=== PATIENT | male | born 1965 | race Two or more races ===

== ENCOUNTER 2018-03-07 13:54 | Emergency (ER) | payer MEDICARE, OTHER ==
[~2018-03-07] VITALS: Ht 172.7 cm; Wt 81.6 kg
[~2018-03-07 13:54] MED LIST: ACETAMINOPHEN-1 EAC1 ORAL; ALBUTEROL SULF8.5 GM INH; ANTIVERT25 MG ORAL; ATIVAN2 MG ORAL; AZITHROMYCIN250 MG ORAL; BACTRIM DS TAB1 EAC1 ORAL; BENADRYL25 MG ORAL; BENADRYL50 MG ORAL; DIFLUCAN150 MG PO; DOXYCYCLINE MO100 MG ORAL; ISENTRESS400 MG ORAL; KEFLEX500 MG ORAL; LORAZEPAM2 MG ORAL; MEDROL DOSEPAK4 MG ORAL; METRONIDAZOLE500 MG ORAL; NORCO 5-325 TA1 EACH ORAL; NORVIR100 MG ORAL; NYSTATIN100000 UN1 ORAL; PEPCID20 MG ORAL; PREDNISONE20 MG ORAL; PREDNISONE50 MG PO; PROMETHAZINE-C118 M1 ORAL; RANITIDINE HCL150 MG ORAL; ROBITUSSIN DM5 ML ORAL; SOMA350 MG PO; THORAZINE10 MG PO; TRUVADA1 TAB ORAL; ZYRTEC10 MG ORAL; [UNRECOGNIZED DRUG - OTHER] PO
[2018-03-07 14:20] VITALS: BP 127/83
--- NOTE | 2018-03-07 14:28 | Emergency Room Report ---
History of Present Illness General Chief Complaint: Multiple Trauma/Fall Source: Patient, Medical Record (Adolph Valdez) Present Illness HPI 52-year-old male patient presents ER complaining of multiple areas of pain status post fall yesterday. Patient reports that he was walking with heavy bottles in both hand when he slipped on some water and fell. Patient reports that he fell onto his left shoulder against the wall and dropped the bottles on his left foot. Patient denies hitting his head or loss of consciousness. Patient denies difficulty with ambulation. patient denies hitting neck or back pain, neck or back yesterday following injury. Patient complains of pain in neck and back today, requesting x-rays of those areas, states he was sent here by his PCP for imaging. Patient reports decreased range of motion of his left shoulder and increased pain since yesterday. reports feeling "a knot" in his posterior left shoulder. Denies taking any medication since that time. denies vomiting, lacerations, leading. Reports history of HIV, states WBC count good and viral load undetectable. Denies other acute symptoms. (Adolph Valdez) Allergies: Coded Allergies: EFAVIRENZ (Verified Allergy, Unknown, 03/11/14) HYDROCODONE (Verified Allergy, Unknown, 03/11/14) Patient History Past Medical History: see triage record Reviewed Nursing Documentation: PMH: Agreed; PSxH: Agreed (Adolph Valdez) Nursing Documentation-PMH Past Medical History: No History, Except For Hx Hypertension: No Hx Pacemaker: No Hx Asthma: No Hx COPD: No Hx Gastrointestinal Problems: Yes - RECTAL POLPYS (Adolph Valdez) Review of Systems All Other Systems: negative except mentioned in HPI (Adolph Valdez P.Veena) Physical Exam Vital Signs Date Time Temp Pulse Resp B/P (MAP) Pulse Ox O2 Delivery O2 Flow Rate FiO2 03/07/18 13:55 97.8 80 18 127/83 97 Room Air 97.9 Sp02 EP Interpretation: reviewed, normal General Appearance: well appearing, no apparent distress, alert, GCS 15, non- toxic Head: normocephalic, atraumatic Eyes: bilateral eye normal inspection, bilateral eye PERRL ENT: hearing grossly normal, normal pharynx, no angioedema, normal voice, uvula midline, moist mucus membranes Neck: full range of motion, no bony tend Respiratory: lungs clear, normal breath sounds, no rhonchi, no respiratory distress, no accessory muscle use, no wheezing, speaking full sentences Cardiovascular #1: regular rate, rhythm, no edema Cardiovascular #2: 2+ radial (R), 2+ radial (L), 2+ dorsalis pedis (R), 2+ dorsalis pedis (L) Musculoskeletal: back normal, digits/nails normal, gait/station normal, normal range of motion - left foot, back, neck, non-tender, decreased range of motion - left shoulder secondary to pain, swelling - posterior left shoulder: 2 cm palpable lump, no bruising, no ecchymosis, other - no bony step-off, no tenderness to palpation of spine, no bruising, no ecchymosis, no erythema; Refill less than 2 seconds, no deformity, able to wiggle toes, no ecchymosis; negative sulcus sign, tender - cereal or shoulder Neurologic: alert, oriented x3, responsive, motor strength/tone normal, sensory intact Psychiatric: mood/affect normal (Adolph Valdez P.AAngela) Medical Decision Making PA Attestation Dr. Haskins is my supervising Physician whom patient management has been discussed with. (Adolph Valdez P.AAngela) Diagnostic Impression: Primary Impression: Neck pain Additional Impressions: Back pain Foot pain Traumatic hematoma of left shoulder ER Course Pt. presents to the ED c/o multiple complaints. Ddx considered but are not limited to fracture, sprain, strain, contusion, dislocation. denies hitting head or loss consciousness, does not require imaging Vital signs: are WNL, pt. is afebrile Ordered X-ray and pain medication. ER COURSE Provided with pain medication. On physical exam, patient reports increased pain with abduction above 90 and internal rotation, decreased range of motion secondary to pain. Bump on posterior shoulder, likely hematoma secondary from fall, advised patient on heating pad and massage.. Take pain medication for pain. An X-ray of the left shoulder was ordered, results show no acute fracture or dislocation, per the preliminary reading. An X-ray of the left foot was ordered, results show no acute fracture, per the preliminary reading. An X-ray of the cervical spine was ordered, results show no acute fracture, per the preliminary reading. An X-ray of the and lumbar spine was ordered, results show no acute fracture, per the preliminary reading. No swelling or deformity of left foot, no subungual hematoma or laceration, throat wiggle toes, likely contusion. Will wrap foot due to pain symptoms. No bony deformity or tenderness to palpation on spine, full range of motion of back and neck, no tenderness to palpation. Likely muscular pain in nature. Informed patient symptoms may worsen in coming days, will provide medication for discharge to home. Karl wrap and postop shoe was applied to the left foot and was checked afterwards by me showing good alignment and support with distal neurovascular functioning intact. Patient reports pain symptoms improved. Patient able ambulate independently, does not require crutches at this time. Patient instructed on RICE method: rest, ice, compression, elevation. Patient instructed to WBAT. CD of images provided to patient. Followup with primary care provider for management and treatment as needed. Discuss referral to ortho/pain management/PT as needed. Discuss further imaging with MRI/CT as needed. DISCHARGE: -Rx provided for Ibuprofen for pain symptoms. -Rx provided for Methocarbamol. SE drowsiness, do not drink, drive, or operate heavy machinery while using. -Rx provided for Lidocaine patch At this time pt. is stable for d/c to home. Patient is resting comfortably, in no acute distress, nontoxic appearing, talking without difficulty. Will provide printed patient care instructions, and any necessary prescriptions. Patient instructed to follow with primary care provider in 3 - 5 days and to request further orthopedic follow-up. Care plan and follow up instructions have been discussed with the patient prior to discharge. Take medications as directed. Patient questions asked and answered. Patient reports understanding and agreement to treatment plan. ER precautions given, patient instructed to return to ER immediately for any new or worsening of symptoms. - Please note that this Emergency Department Report was dictated using JobSyncrefuse driver technology software, occasionally this can lead to erroneous entry secondary to interpretation by the dictation equipment. (Adolph Valdez) Other X-Ray Diagnostic Results Other X-Ray Diagnostic Results #1: X-Ray ordered: left shoulder # of Views/Limited Vs Complete: 3 View Indication: Pain EP Interpretation: Yes PA Xray: Interpretation reviewed, by supervising MD, and agrees with findings. Interpretation: no dislocation, no soft tissue swelling, no fractures Impression: No acute disease PA Scribe Text Ritesh Valdez PA-C Other X-Ray Diagnostic Results #2: X-Ray ordered: left foot # of Views/Limited Vs Complete: 3 View Indication: Pain EP Interpretation: Yes PA Xray: Interpretation reviewed, by supervising MD, and agrees with findings. Interpretation: no dislocation, no soft tissue swelling, no fractures Impression: No acute disease PA Scribe Text Ritesh Valdez PA-C Other X-Ray Diagnostic Results #3: X-Ray ordered: cervical neck # of Views/Limited Vs Complete: Complete Indication: Pain EP Interpretation: Yes PA Xray: Interpretation reviewed, by supervising MD, and agrees with findings. Interpretation: no dislocation, no soft tissue swelling, no fractures Impression: No acute disease PA Scribe Text Ritesh Valdez PA-C Other X-Ray Diagnostic Results #4: X-Ray ordered: lumbar spine # of Views/Limited Vs Complete: 3 View Indication: Pain EP Interpretation: Yes PA Xray: Interpretation reviewed, by supervising MD, and agrees with findings. Interpretation: no dislocation, no soft tissue swelling, no fractures Impression: No acute disease PA Scribe Text Ritesh Valdez MELINDA-Vannesa (Adolph Valdez P.A.) Other X-Ray Diagnostic Results #1: Electronically Signed by: Scribe documentation reviewed by me and is accurate, Nash Haskins MD. Other X-Ray Diagnostic Results #2: Electronically Signed by: Scribe documentation reviewed by me and is accurate, Nash Haskins MD. Other X-Ray Diagnostic Results #3: Electronically Signed by: Scribe documentation reviewed by me and is accurate, Nash Haskins MD. Other X-Ray Diagnostic Results #4: Electronically Signed by: Scribe documentation reviewed by me and is accurate, Nash Haskins MD. (Nash Haskins M.D.) Last Vital Signs Date Time Temp Pulse Resp B/P (MAP) Pulse Ox O2 Delivery O2 Flow Rate FiO2 03/07/18 14:20 97.9 87 18 127/83 97 Room Air 97.9 (Adolph Valdez P.A.) Disposition: HOME, SELF-CARE Condition: Stable Scripts Methocarbamol* (ROBAXIN*) 500 Mg Tablet 500 MG PO TID, #21 TAB 0 Refills Prov: Adolph Valdez P.A. 03/07/18 Lidocaine (Lidocaine) 1 Each Adh..patch 700 MG TP DAILY for 7 Days, #7 PATCH Prov: Adolph Valdez 03/07/18 Ibuprofen* (MOTRIN*) 600 Mg Tablet 600 MG ORAL Q8H PRN for For Pain, #30 TAB 0 Refills Prov: Adolph Valdez 03/07/18 Patient Instructions: Back Pain, Adult, [id number], Cervical Sprain, Easy-to- Read, Foot Contusion, [id number], Shoulder Pain, [id number], Shoulder Range of Motion Exercises Additional Instructions: Patient instructed to follow up with primary care provider and discuss further referral in imaging at that time. Patient instructed on RICE method: rest, ice, compression, elevation. patient instructed on heating pad and massage for hematoma. Patient instructed to WBAT. Take medications as directed. Muscle relaxant may cause drowsiness, do not take prior to drinking, driving, or operating heavy machinery. Patient questions asked and answered. ER precautions given, patient instructed to return to ER immediately for any new or worsening of symptoms. Adolph Valdez March 07, 2018 14:28 Nash Haskins M.D. March 08, 2018 02:38
[2018-03-07] MEDS ORDERED: Acetaminophen 500mg (ES) tab ORAL ONE (14:30)
[2018-03-07] MEDS ORDERED: Methocarbamol 500mg tab ORAL ONE (14:30)
[2018-03-07] MEDS ORDERED: LIDOCAINE700 M1 TP (15:56)
[2018-03-07] MEDS ORDERED: ROBAXIN500 MG PO (15:56)
[2018-03-07] MEDS ORDERED: IBUPROFEN600 MG ORAL (15:56)
[2018-03-07 16:28] VITALS: BP 127/83
--- NOTE | 2018-03-08 09:36 | Diagnostic Imaging Report ---
Indication: Reason For Exam: PAIN Technique: Left foot, 3 views Comparison: None. Findings: The bones are intact. There is deformity of the fifth metatarsal consistent with old fracture. No acute fracture. No bone destruction. Impression: Deformity of the fifth metatarsal, likely related to old fracture. No acute abnormality.
--- NOTE | 2018-03-08 09:38 | Diagnostic Imaging Report ---
Indication: Reason For Exam: PAIN Technique: Left shoulder, 3 views Comparison: None. Findings: The osseous structures are intact. There is no fracture or destruction. The visualized joints are normal. The soft tissues are unremarkable. Impression: Negative study.
--- NOTE | 2018-03-08 09:40 | Diagnostic Imaging Report ---
Indication: Low back pain Technique: 3 views of the lumbosacral spine. Comparison: None Findings: There is spondylolysis of the pars interarticularis of L5. Grade 1 spondylolisthesis of L5 on S1 is noted. The coccyx is slightly posteriorly displaced. Alignment is otherwise intact. No fracture. No bone destruction. Impression: Spondylolysis of L5 with grade 1 listhesis of L5 on S1. Slight posterior displacement of the coccyx, likely related to old trauma. No acute abnormality.
--- NOTE | 2018-03-08 09:42 | Diagnostic Imaging Report ---
Indication: Reason For Exam: PAIN Technique: XRAY C Spine 2-3v Comparison: 04/27/2014. Findings: Alignment is intact. There is no fracture. There is no evidence of bone destruction. There is slight narrowing of the C4-5 and C5-6 discs.. Impression: Minimal degenerative change. Otherwise negative.
== END 2018-03-07 16:40 | disposition home or self-care (01) ==
LOC: EMR 14:30
DX: M54.2 Cervicalgia (principal); M79.672 Pain in left foot; M54.9 Dorsalgia, unspecified; S40.012A Contusion of left shoulder, initial encounter; W01.0XXA Fall on same level from slipping, tripping and stumbling without subsequent striking against object, initial encounter; Y92.9 Unspecified place or not applicable; M47.816 Spondylosis without myelopathy or radiculopathy, lumbar region; M43.16 Spondylolisthesis, lumbar region; M21.962 Unspecified acquired deformity of left lower leg
CPT/HCPCS: 72020; 72040; 99284

== ENCOUNTER → 2018-03-12 | Outpatient (CLI) | payer MEDICARE, OTHER ==
[~2018-03-12] MED LIST changes: +IBUPROFEN600 MG ORAL; +LIDOCAINE700 M1 TP; +ROBAXIN500 MG PO
--- NOTE | 2018-03-12 11:35 | Diagnostic Imaging Report ---
Indication:Elevated Bun and Creatinine. Technique: Grayscale and duplex Doppler imaging of the kidneys performed. Comparison: None Findings: The size, contour, and echogenicity of both kidneys are within normal limits. There is a calcification in the left kidney which may be a nonobstructive stone. There is a cyst in the left kidney measuring 9 mm. Left kidney is 12.5 cm. Right kidney is 11 cm in length. There is no hydronephrosis. IVC is unremarkable. There is layering material which may be blood or debris in the urinary bladder. Impression: Possible nonobstructive stone in the left kidney. Noncontrast CT may confirm this. Left renal cyst. Small amount of debris or blood noted in the bladder. Negative exam otherwise
== END | disposition home or self-care (01) ==
LOC: ULS 10:55
DX: R31.9 Hematuria, unspecified (principal); N20.0 Calculus of kidney
CPT/HCPCS: 76770

== ENCOUNTER 2018-09-12 05:07 | Emergency (ER) | payer MEDICARE, OTHER ==
[~2018-09-12] VITALS: Ht 172.7 cm; Wt 84.8 kg
[2018-09-12 05:26] VITALS: BP 142/92
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
[2018-09-12 05:50] VITALS: BP 142/92
== END 2018-09-12 05:50 | disposition home or self-care (01) ==
LOC: EMR 05:43
DX: M54.2 Cervicalgia (principal); M54.9 Dorsalgia, unspecified; Z88.6 Allergy status to analgesic agent; Z88.8 Allergy status to other drugs, medicaments and biological substances; V49.9XXA Car occupant (driver) (passenger) injured in unspecified traffic accident, initial encounter; Y92.410 Unspecified street and highway as the place of occurrence of the external cause
CPT/HCPCS: 99282

== ENCOUNTER 2019-05-01 11:46 | Emergency (ER) | payer MEDICARE, OTHER ==
[~2019-05-01] VITALS: Ht 172.7 cm; Wt 85.7 kg
[2019-05-01 11:49] VITALS: BP 119/74
--- NOTE | 2019-05-01 12:12 | Emergency Room Report ---
History of Present Illness General Chief Complaint: Chest Pain Source: Patient Present Illness HPI 53 year old male pmhx of HIV, CD4 count > 700, undetectable, presents with intermittent chest pressure that comes and go for mins, no aggravating or alleviating factors, patient has felt sob. Patient denies any f/c, cough congestion, no n/v, no abdominal pain. Patient presents for eval Allergies: Coded Allergies: EFAVIRENZ (Verified Allergy, Unknown, 03/11/14) HYDROCODONE (Verified Allergy, Unknown, 03/11/14) Patient History Past Medical History: see triage record Reviewed Nursing Documentation: PMH: Agreed; PSxH: Agreed Nursing Documentation-PMH Past Medical History: No History, Except For Hx Hypertension: No Hx Pacemaker: No Hx Asthma: No Hx COPD: No Hx Gastrointestinal Problems: Yes - RECTAL POLPYS Review of Systems Constitutional: Denies: chills, fever Eye: Denies: blurred vision, double vision ENT: Denies: throat pain, nasal discharge Respiratory: Reports: shortness of breath; Denies: cough Cardiovascular: Reports: chest pain; Denies: palpitations Gastrointestinal: Denies: abdominal pain, diarrhea, nausea, vomiting Genitourinary: Denies: dysuria, pain Musculoskeletal: Denies: back pain, muscle pain Skin: Denies: rash, lesions Neurological: Denies: headache, focal weakness Hematologic/Lymphatic: Denies: easy bleeding, easy bruising All Other Systems: negative except mentioned in HPI Physical Exam Vital Signs Date Time Temp Pulse Resp B/P (MAP) Pulse Ox O2 Delivery O2 Flow Rate FiO2 05/01/19 11:49 98.2 85 21 119/74 (89) 95 Room Air Sp02 EP Interpretation: reviewed, normal General Appearance: well appearing, no apparent distress, alert Head: normocephalic, atraumatic Eyes: bilateral eye PERRL, bilateral eye EOMI ENT: uvula midline, moist mucus membranes Neck: supple, thyroid normal, supple/symm/no masses Respiratory: lungs clear, no respiratory distress, no retraction, no accessory muscle use Cardiovascular #1: normal peripheral pulses, regular rate, rhythm, no edema, no gallop, no murmur Gastrointestinal: non tender, soft, no guarding, no rebound Musculoskeletal: normal inspection Neurologic: alert, oriented x3 Psychiatric: mood/affect normal Skin: no rash, warm/dry Medical Decision Making Diagnostic Impression: Primary Impression: Chest pain ER Course 53-year-old male presents with chest pain concerning for possible ACS, patient with a history of HIV is at risk of accelerated atherosclerosis, patient at 1 PM decided that he does not want to be admitted to the hospital he states that he must move his cars, he is aware of the risk of disability and worsening of his medical condition he is of sound mind. The patient has requested to leave the ED against medical advice. The patient reason(s) for leaving include, but are not limited to, the following: "I need to move my cars, no and can move my cards for me, and I do not want to get a ticket, and my pain is all gone." I believe this patient is of sound mind and competent to refuse medical care. The patient is responding and asking questions appropriately. The patient is oriented to person, place and time. The patient is not psychotic, delusional, suicidal, homicidal or hallucinating. The patient demonstrates a normal mental capacity to make decisions regarding their healthcare. The patient is clinically sober and does not appear to be under the influence of any illicit drugs at this time. The patient has been advised of the risks, in layman terms, of leaving AMA which include, but are not limited to , coma, permanent disability, loss of current lifestyle, delay in diagnosis. Alternatives have been offered - the patient remains steadfast in their wish to leave. The patient has been advised that should they change their mind they are welcome to return to this hospital, or any other, at any time. The patient understands that in no way does an AMA discharge mean that I do not want them to have the best medical care available. To this end, I have provided appropriate prescriptions, referrals, and discharge instructions. The patient did sign AMA paperwork. The above discussion was witnessed by another member of staff. Laboratory Tests Test 05/01/19 12:02 White Blood Count 8.2 K/UL (4.8-10.8) Red Blood Count 4.42 M/UL (4.70-6.10) L Hemoglobin 14.3 G/DL (14.2-18.0) Hematocrit 43.0 % (42.0-52.0) Mean Corpuscular Volume 97 FL (80-99) Mean Corpuscular Hemoglobin 32.4 PG (27.0-31.0) H Mean Corpuscular Hemoglobin Concent 33.3 G/DL (32.0-36.0) Red Cell Distribution Width 11.1 % (11.6-14.8) L Platelet Count 307 K/UL (150-450) Mean Platelet Volume 5.9 FL (6.5-10.1) L Neutrophils (%) (Auto) 55.5 % (45.0-75.0) Lymphocytes (%) (Auto) 34.6 % (20.0-45.0) Monocytes (%) (Auto) 8.0 % (1.0-10.0) Eosinophils (%) (Auto) 1.3 % (0.0-3.0) Basophils (%) (Auto) 0.7 % (0.0-2.0) Sodium Level 137 MMOL/L (136-145) Potassium Level 3.5 MMOL/L (3.5-5.1) Chloride Level 104 MMOL/L (98-107) Carbon Dioxide Level 27 MMOL/L (21-32) Anion Gap 6 mmol/L (5-15) Blood Urea Nitrogen 14 mg/dL (7-18) Creatinine 1.2 MG/DL (0.55-1.30) Estimate Glomerular Filtration Rate > 60 mL/min (>60) Glucose Level 110 MG/DL (74-106) H Calcium Level 9.5 MG/DL (8.5-10.1) Total Bilirubin 0.4 MG/DL (0.2-1.0) Aspartate Amino Transferase (AST) 19 U/L (15-37) Alanine Aminotransferase (ALT) 28 U/L (12-78) Alkaline Phosphatase 53 U/L (46-116) Total Creatine Kinase 123 U/L (26-308) Creatine Kinase MB 0.9 NG/ML (0.0-3.6) Creatine Kinase MB Relative Index 0.7 Troponin I 0.000 ng/mL (0.000-0.056) Pro-B-Type Natriuretic Peptide 12 pg/mL (0-125) Total Protein 7.7 G/DL (6.4-8.2) Albumin 4.2 G/DL (3.4-5.0) Globulin 3.5 g/dL Albumin/Globulin Ratio 1.2 (1.0-2.7) EKG Diagnostic Results EKG Time: 11:55 EP Interpretation: nsr, rate 77, qtc 418, no acute st elevations, normal axis Rate: normal Rhythm: NSR ST Segments: no acute changes ASA given to the pt in ED: Yes Rhythm Strip Diag. Results Rhythm Strip Time: 12:13 EP Interpretation: yes Rate: 82 Rhythm: NSR, no PVC's, no ectopy Chest X-Ray Diagnostic Results Chest X-Ray Diagnostic Results : Chest X-Ray Ordered: Yes # of Views/Limited/Complete: 1 View Indication: Chest Pain EP Interpretation: Yes Interpretation: no consolidation, no effusion, no pneumothorax, no acute cardiopulmonary disease Impression: No acute disease Electronically Signed by: Wilder Fox MD Last Vital Signs Date Time Temp Pulse Resp B/P (MAP) Pulse Ox O2 Delivery O2 Flow Rate FiO2 05/01/19 11:49 98.2 85 21 119/74 (89) 95 Room Air Disposition: AGAINST MEDICAL ADVICE Condition: Stable Scripts Aspirin* (ASPIR 81*) 81 Mg Tablet. 81 MG ORAL DAILY, #30 TAB Prov: Wilder Fox M.D. 05/01/19 Referrals: NON PHYSICIAN (PCP) [facility] Patient Instructions: Nonspecific Chest Pain Additional Instructions: The patient was provided with discharge instructions, notified to follow-up with a primary care doctor and or specialist in the next 24-48 hours, and to return to the ED if they have worsening of their symptoms. Please note that this report is being documented using DRAGON technology. This can lead to erroneous entry secondary to incorrect interpretation by the dictating instrument. Wilder Fox M.D. May 01, 2019 12:12
--- NOTE | 2019-05-01 12:13 | NUR ---
ED Nurse Note: Pt. AAOx4. ambulatory. Came in to ER due to CP since yesterday accompanied with sob and dizziness. Pt. stated the pain remains on the L subsaternal non-radiating. Lung sounds are clear auscultations. Bowels sounds are present to auscultation. No s/s of acute resp distress noted at this time.
--- NOTE | 2019-05-01 12:16 | NUR ---
ED Nurse Note: COMMUNICATIONS ENGINEERING TECHNICIAN AT THE BED SIDE FOR CXR.
[2019-05-01 12:18] LABS: BASOPHILS % (AUTO) 0.7 % (0.0-2.0); EOSINOPHILS % (AUTO) 1.3 % (0.0-3.0); HEMOGLOBIN 14.3 G/DL (14.2-18.0); LYMPHOCYTES % (AUTO) 34.6 % (20.0-45.0); MEAN CORPUSCULAR VOLUME 97 FL (80-99); NEUTROPHILS % (AUTO) 55.5 % (45.0-75.0); PLATELET COUNT 307 K/UL (150-450); RED BLOOD COUNT 4.42 M/UL (4.70-6.10); RED CELL DISTRIBUTION WIDTH 11.1 % (11.6-14.8); WHITE BLOOD COUNT 8.2 K/UL (4.8-10.8)
[2019-05-01 12:26] LABS: ANION GAP 6 mmol/L (5-15); BLOOD UREA NITROGEN 14 mg/dL (7-18); CALCIUM 9.5 MG/DL (8.5-10.1); CARBON DIOXIDE 27 MMOL/L (21-32); CHLORIDE 104 MMOL/L (98-107); CREATININE 1.2 MG/DL (0.55-1.30); POTASSIUM 3.5 MMOL/L (3.5-5.1); SODIUM 137 MMOL/L (136-145)
[2019-05-01 12:38] LABS: ALANINE AMINOTRANSFERASE 28 U/L (12-78); ALBUMIN 4.2 G/DL (3.4-5.0); ALBUMIN/GLOBULIN RATIO 1.2 (1.0-2.7); ALKALINE PHOSPHATASE 53 U/L (46-116); ASPARTATE AMINO TRANSFERASE 19 U/L (15-37); BILIRUBIN,TOTAL 0.4 MG/DL (0.2-1.0); CKMB 0.9 NG/ML (0.0-3.6); CREATINE KINASE 123 U/L (26-308)
[2019-05-01] MEDS ORDERED: ASPIR 8181 MG ORAL (12:59)
[2019-05-01 13:09] VITALS: BP 127/88
--- NOTE | 2019-05-01 13:09 | NUR ---
ER DISCHARGE NOTE: Dr Fox explained to pt benefits of hospitalization. Patient signed AMA and verbalized understanding of potential complications of being discharged and that he can come back anytime to ER. pt is aox4, on room air, with stable vital signs. pt was given dc and prescription instructions, pt was able to verbalize understanding, pt id band and iv site removed without complications. pt is able to ambulate with steady gait. pt took all belongings.
[2019-05-01] MEDS ORDERED: MECLIZINE HCL25 M1 ORAL (13:16)
--- NOTE | 2019-05-01 14:24 | Diagnostic Imaging Report ---
Indication: Chest pain Technique: One view of the chest Comparison: 12/03/2015 Findings: There is minimal atelectasis at the left lung base. No other significant interim change. Lungs and pleural spaces are otherwise clear. The heart size is normal. Impression: Minimal left basilar atelectasis. No acute process otherwise This agrees with the preliminary interpretation provided overnight by [facility]erad[facility] service.
--- NOTE | 2019-05-02 21:05 | Cardiology Report ---
APPROVED REPORT EKG Measurement Heart [id number] Normal sinus rhythm Normal ECG
== END 2019-05-01 13:09 | disposition left against medical advice (07) ==
LOC: EMR 11:56 → CANBEDREQ 13:09
DX: R07.9 Chest pain, unspecified (principal); B20 Human immunodeficiency virus [HIV] disease; Z88.6 Allergy status to analgesic agent
CPT/HCPCS: 36415; 71045; 80053; 82550; 82553; 83880; 84484; 85025; 93005; 99284

== ENCOUNTER 2019-05-14 05:55 | Emergency (ER) | payer MEDICARE, OTHER ==
[~2019-05-14] VITALS: Ht 172.7 cm; Wt 85.7 kg
[~2019-05-14 05:55] MED LIST changes: +ASPIR 8181 MG ORAL; +MECLIZINE HCL25 M1 ORAL
--- NOTE | 2019-05-14 06:08 | NUR ---
ED Nurse Note: Pt c/o 07/21 abdominal pain since 2am, pt reports pain started after taking daily medications without food. ao4. nad vss
--- NOTE | 2019-05-14 06:15 | NUR ---
ED Nurse Note: IV ACCESS ESTABLISHED. BLOOD AND URINE COLLECTED; SENT DOWN TO LAB.
[2019-05-14 06:26] VITALS: BP 120/90
--- NOTE | 2019-05-14 06:40 | Emergency Room Report ---
History of Present Illness General Chief Complaint: Abdominal Pain Source: Patient Present Illness HPI Patient is a 53-year-old male with prior history of HIV who presented after increased abdominal pain and distention. He reports of increased pain since yesterday. Patient reports having increased crampy abdominal pain. He denies any hematemesis or bloody stools. He had not been vomiting. He normally takes acid blockers. He is currently on HIV medications and states he has undetectable viral load as well as normal cell count. He denies any diarrhea. He denies any other locations of discomfort at this time.Patient reports having 3 prior hernia surgeries. He states that he did not return to a surgeon after 3 failures.Patient does not report any focal pain. He states that this is diffuse throughout his entire abdomen. Allergies: Coded Allergies: EFAVIRENZ (Verified Allergy, Unknown, 03/11/14) HYDROCODONE (Verified Allergy, Unknown, 03/11/14) Patient History Past Medical History: see triage record Reviewed Nursing Documentation: PMH: Agreed; PSxH: Agreed Nursing Documentation-PMH Past Medical History: No History, Except For Hx Hypertension: No Hx Pacemaker: No Hx Asthma: No Hx COPD: No Hx Gastrointestinal Problems: Yes - RECTAL POLPYS Review of Systems All Other Systems: negative except mentioned in HPI Physical Exam Vital Signs Date Time Temp Pulse Resp B/P (MAP) Pulse Ox O2 Delivery O2 Flow Rate FiO2 05/14/19 05:58 98.2 80 19 120/90 (100) 93 Room Air Sp02 EP Interpretation: reviewed, normal General Appearance: normal inspection, well appearing, no apparent distress, alert, GCS 15, non-toxic Head: atraumatic ENT: normal ENT inspection, hearing grossly normal, normal voice Neck: normal inspection, full range of motion, supple, no bony tend Respiratory: normal inspection, lungs clear, normal breath sounds, no respiratory distress, no retraction, no wheezing Cardiovascular #1: regular rate, rhythm, no edema Gastrointestinal: normal inspection, normal bowel sounds, non tender, soft, no guarding, hernia Genitourinary: no CVA tenderness Musculoskeletal: normal inspection, back normal, normal range of motion Neurologic: normal inspection, alert, responsive, speech normal Psychiatric: normal inspection, judgement/insight normal, mood/affect normal Medical Decision Making Diagnostic Impression: Primary Impression: Abdominal pain ER Course Patient presented for abdominal pain. Differential diagnoses included ischemic bowel, appendicitis, perforated viscus, abdominal aortic aneurysm, inferior myocardial infarction, viral gastroenteritis among others. Because of complexity of patient's case laboratory testing and imaging studies were ordered. Patient was noted to have diffuse abdominal pain with some mild distention. Patient appears to have no focal peritoneal signs.CT imaging will be ordered due to patient's prior history of hernia as well as HIV status.Laboratory studies were unremarkable. Patient CT imaging of the abdomen pelvis read by radiology showed multiple fluid-filled bowel loops as well as some mild inflammatory changes to the abdominal fat. There is not evidence of evidence of bowel obstruction or appendicitis. Patient was also noted to have umbilical hernia which does not appear to be containing any bowel. Patient was given medications for symptomatic treatment with improvement. Patient given prescription for acid blockers as well as for antispasmodic medication. He was advised to follow-up with his primary care physician as well as GI. Patient is to return if worse. Labs Test 05/14/19 06:15 White Blood Count 7.9 K/UL (4.8-10.8) Red Blood Count 4.09 M/UL (4.70-6.10) Hemoglobin 13.4 G/DL (14.2-18.0) Hematocrit 39.7 % (42.0-52.0) Mean Corpuscular Volume 97 FL (80-99) Mean Corpuscular Hemoglobin 32.8 PG (27.0-31.0) Mean Corpuscular Hemoglobin Concent 33.8 G/DL (32.0-36.0) Red Cell Distribution Width 11.3 % (11.6-14.8) Platelet Count 286 K/UL (150-450) Mean Platelet Volume 5.8 FL (6.5-10.1) Neutrophils (%) (Auto) 51.0 % (45.0-75.0) Lymphocytes (%) (Auto) 36.9 % (20.0-45.0) Monocytes (%) (Auto) 9.6 % (1.0-10.0) Eosinophils (%) (Auto) 1.7 % (0.0-3.0) Basophils (%) (Auto) 0.9 % (0.0-2.0) Urine Color Pale yellow Urine Appearance Slightly cloudy Urine pH 7 (4.5-8.0) Urine Specific Brandon 1.015 (1.005-1.035) Urine Protein Negative (NEGATIVE) Urine Glucose (UA) Negative (NEGATIVE) Urine Ketones Negative (NEGATIVE) Urine Blood 1+ (NEGATIVE) Urine Nitrite Negative (NEGATIVE) Urine Bilirubin Negative (NEGATIVE) Urine Urobilinogen Normal MG/DL (0.0-1.0) Urine Leukocyte Esterase Negative (NEGATIVE) Urine RBC 2-4 /HPF (0 - 0) Urine WBC 0-2 /HPF (0 - 0) Urine Squamous Epithelial Cells Occasional /LPF Urine Amorphous Sediment Many /LPF (NONE) Urine Bacteria Occasional /HPF (NONE) Sodium Level 139 MMOL/L (136-145) Potassium Level 3.5 MMOL/L (3.5-5.1) Chloride Level 106 MMOL/L (98-107) Carbon Dioxide Level 27 MMOL/L (21-32) Anion Gap 7 mmol/L (5-15) Blood Urea Nitrogen 16 mg/dL (7-18) Creatinine 1.0 MG/DL (0.55-1.30) Estimat Glomerular Filtration Rate > 60 mL/min (>60) Glucose Level 106 MG/DL (74-106) Calcium Level 9.3 MG/DL (8.5-10.1) Total Bilirubin 0.2 MG/DL (0.2-1.0) Aspartate Amino Transf (AST/SGOT) 15 U/L (15-37) Alanine Aminotransferase (ALT/SGPT) 25 U/L (12-78) Alkaline Phosphatase 73 U/L (46-116) Total Protein 7.7 G/DL (6.4-8.2) Albumin 3.7 G/DL (3.4-5.0) Globulin 4.0 g/dL Albumin/Globulin Ratio 0.9 (1.0-2.7) Lipase 152 U/L (73-393) Last Vital Signs Date Time Temp Pulse Resp B/P (MAP) Pulse Ox O2 Delivery O2 Flow Rate FiO2 05/14/19 06:26 80 19 Room Air 05/14/19 06:26 98.2 120/90 93 Status: improved Disposition: HOME, SELF-CARE Condition: Stable Scripts Omeprazole (OMEPRAZOLE) 20 Mg Capsule. 20 MG ORAL DAILY, #30 CAP Prov: Mata Aguilera MD 05/14/19 Dicyclomine Hcl* (DICYCLOMINE HCL*) 10 Mg Capsule 10 MG ORAL QID, #20 CAP Prov: Mata Aguilera MD 05/14/19 Mata Aguilera MD May 14, 2019 06:40
[2019-05-14] MEDS ORDERED: Lidocaine 2% Visc 15ml soln ORAL ONE (06:45)
[2019-05-14] MEDS ORDERED: Mylanta II UD 30ml ORAL ONE (06:45)
[2019-05-14] MEDS ORDERED: Dicyclomine HCl 10mg/5ml oral soln ORAL ONE (06:45)
[2019-05-14 07:02] LABS: ANION GAP 7 mmol/L (5-15); BLOOD UREA NITROGEN 16 mg/dL (7-18); CALCIUM 9.3 MG/DL (8.5-10.1); CARBON DIOXIDE 27 MMOL/L (21-32); CHLORIDE 106 MMOL/L (98-107); POTASSIUM 3.5 MMOL/L (3.5-5.1); SODIUM 139 MMOL/L (136-145)
[2019-05-14 07:07] LABS: ALANINE AMINOTRANSFERASE 25 U/L (12-78); ALBUMIN 3.7 G/DL (3.4-5.0); ALBUMIN/GLOBULIN RATIO 0.9 (1.0-2.7); ALKALINE PHOSPHATASE 73 U/L (46-116); ASPARTATE AMINO TRANSFERASE 15 U/L (15-37); BILIRUBIN,TOTAL 0.2 MG/DL (0.2-1.0)
--- NOTE | 2019-05-14 07:08 | NUR ---
ED Nurse Note: recieved pt asleep on gurney, with respiration even and unlabored, no complaint at the moment. pt is connected to visual basic programmer with vss. will continue to monitor
[2019-05-14 07:09] VITALS: BP 121/78
[2019-05-14 07:11] LABS: BASOPHILS % (AUTO) 0.9 % (0.0-2.0); EOSINOPHILS % (AUTO) 1.7 % (0.0-3.0); HEMATOCRIT 39.7 % (42.0-52.0); HEMOGLOBIN 13.4 G/DL (14.2-18.0); LYMPHOCYTES % (AUTO) 36.9 % (20.0-45.0); MEAN CORPUSCULAR VOLUME 97 FL (80-99); MONOCYTES % (AUTO) 9.6 % (1.0-10.0); PLATELET COUNT 286 K/UL (150-450); RED BLOOD COUNT 4.09 M/UL (4.70-6.10); RED CELL DISTRIBUTION WIDTH 11.3 % (11.6-14.8); WHITE BLOOD COUNT 7.9 K/UL (4.8-10.8)
[2019-05-14] MEDS ORDERED: Isovue-300 100ml vial INJ PRN (07:15)
[2019-05-14 07:16] LABS: APPEARANCE,URINE SLIGHTLY CLOUDY; BILIRUBIN, URINE NEGATIVE (NEGATIVE); COLOR,URINE PALE YELLOW; GLUCOSE, URINE (UA) NEGATIVE (NEGATIVE); KETONES,URINE NEGATIVE (NEGATIVE); LEUKOCYTE ESTERASE ,URINE NEGATIVE (NEGATIVE); NITRITE,URINE NEGATIVE (NEGATIVE); PH,URINE 7 (4.5-8.0); PROTEIN,URINE NEGATIVE (NEGATIVE); UROBILINOGEN,URINE NORMAL MG/DL (0.0-1.0)
--- NOTE | 2019-05-14 07:56 | NUR ---
ED Nurse Note: pt went to ct with tech
--- NOTE | 2019-05-14 08:10 | NUR ---
ED Nurse Note: pt went back from ct with tech
--- NOTE | 2019-05-14 08:25 | Diagnostic Imaging Report ---
EXAM: CT Abdomen and Pelvis With Intravenous Contrast CLINICAL HISTORY: PAIN TECHNIQUE: Axial computed tomography images of the abdomen and pelvis with intravenous contrast. CTDI is 14.79 mGy and DLP is 812 mGy-cm. One or more of the following dose reduction techniques were used: automated exposure control, adjustment of the mA and/or kV according to patient size, use of iterative reconstruction technique. COMPARISON: CT abdomen and pelvis 06/21/14 FINDINGS: Lung bases: Mild lingular atelectasis. Mediastinum: Small hiatal hernia. ABDOMEN: Liver: Unremarkable. No mass. Gallbladder and bile ducts: Unremarkable. No calcified stones. No ductal dilation. Pancreas: Unremarkable. No mass. No ductal dilation. Spleen: Unremarkable. No splenomegaly. Adrenals: Unremarkable. No mass. Kidneys and ureters: Unremarkable. No solid mass. No hydronephrosis. Stomach and bowel: 12 mm fatty lesion in the proximal gastric wall without obstruction. 10 mm small lipoma in the mid third portion of the duodenum without obstruction. Mild fluid-filled small bowel loops. No bowel obstruction. No mucosal thickening. PELVIS: Appendix: Normal appendix. Bladder: Unremarkable. No mass. Reproductive: Unremarkable as visualized. ABDOMEN and PELVIS: Intraperitoneal space: Unremarkable. No free air. No significant fluid collection. Bones/joints: Bilateral L5 pars defects with 6 mm anterolisthesis of L5 on S1, stable. Small sclerotic focus right iliac bone. No acute fracture. No dislocation. Soft tissues: Small supraumbilical midline fat-containing ventral hernia, this is smaller than prior study. Mild induration of the fat in the hernia sac in the anterior abdomen may fatty necrosis. Small bilateral fat-containing inguinal hernias. Vasculature: Unremarkable. No abdominal aortic aneurysm. Lymph nodes: Unremarkable. No enlarged lymph nodes. IMPRESSION: 1. Small supraumbilical midline fat-containing ventral hernia, this is smaller than prior study. Mild induration of the fat in the hernia sac and in the anterior abdomen may fatty necrosis. 2. 12 mm fatty lesion in the proximal gastric wall without obstruction. 10 mm small lipoma in the mid third portion of the duodenum without obstruction. Mild fluid-filled small bowel loops. No bowel obstruction. 3. Normal appendix. 4. Bilateral L5 pars defects with 6 mm anterolisthesis of L5 on S1, stable.
[2019-05-14] MEDS ORDERED: DICYCLOMINE HCL10 MG ORAL (08:42)
[2019-05-14] MEDS ORDERED: OMEPRAZOLE20 M2 ORAL (08:42)
[2019-05-14 08:57] VITALS: BP 120/78
--- NOTE | 2019-05-14 08:57 | NUR ---
ER DISCHARGE NOTE: Patient is cleared to be discharged per ERMD, pt is aox4, on room air, with stable vital signs. pt was given dc and prescription instructions, pt was able to verbalize understanding, pt id band and iv site removed without complications. pt is able to ambulate with steady gait. pt took all belongings.
== END 2019-05-14 08:57 | disposition home or self-care (01) ==
LOC: EMR 06:51
DX: R10.9 Unspecified abdominal pain (principal); R14.0 Abdominal distension (gaseous); B20 Human immunodeficiency virus [HIV] disease; Z88.8 Allergy status to other drugs, medicaments and biological substances; Z86.010 Personal history of colon polyps
CPT/HCPCS: 36415; 74177; 80053; 81003; 83690; 85025; 86850; 86900; 86901; 99284; J7040; Q9967

== ENCOUNTER 2019-07-23 12:27 | Emergency (ER) | payer MEDICARE, OTHER ==
[~2019-07-23] VITALS: Ht 172.7 cm; Wt 88.5 kg
[~2019-07-23 12:27] MED LIST changes: +DICYCLOMINE HCL10 MG ORAL; +OMEPRAZOLE20 M2 ORAL
--- NOTE | 2019-07-23 12:51 | NUR ---
ED Nurse Note: PT WALKED IN TO ER TODAY FROM HOME. AOX4. PT C/O NONRADIATING, LEFT SIDED CHEST PAIN, 6/10 X 2 DAYS AGO. NORMAL SINUS RHYTHM ON BONDING AGENT, HR 76, BP 133/67. PT ALSO C/O BILATERAL UPPER EXTREMITY ITCHING X 2 DAYS AGO. NO RASH ON ASSESSMENT.
[2019-07-23 12:53] VITALS: BP 133/67
--- NOTE | 2019-07-23 13:24 | NUR ---
ED Nurse Note: XRAY AT BEDSIDE.
[2019-07-23 13:28] LABS: BASOPHILS % (AUTO) 1.1 % (0.0-2.0); EOSINOPHILS % (AUTO) 2.6 % (0.0-3.0); HEMATOCRIT 41.9 % (42.0-52.0); HEMOGLOBIN 14.1 G/DL (14.2-18.0); LYMPHOCYTES % (AUTO) 37.5 % (20.0-45.0); MEAN CORPUSCULAR VOLUME 97 FL (80-99); MONOCYTES % (AUTO) 8.8 % (1.0-10.0); NEUTROPHILS % (AUTO) 50.1 % (45.0-75.0); PLATELET COUNT 322 K/UL (150-450); RED BLOOD COUNT 4.33 M/UL (4.70-6.10); RED CELL DISTRIBUTION WIDTH 11.1 % (11.6-14.8)
[2019-07-23] MEDS ORDERED: Hydrocortisone 2.5% Oint 30gm TOPIC PRN (13:30)
[2019-07-23 13:42] LABS: ANION GAP 8 mmol/L (5-15); BLOOD UREA NITROGEN 12 mg/dL (7-18); CALCIUM 9.3 MG/DL (8.5-10.1); CARBON DIOXIDE 27 MMOL/L (21-32); CHLORIDE 106 MMOL/L (98-107); CREATININE 1.1 MG/DL (0.55-1.30); POTASSIUM 3.5 MMOL/L (3.5-5.1); SODIUM 141 MMOL/L (136-145)
[2019-07-23 13:57] LABS: ALANINE AMINOTRANSFERASE 29 U/L (12-78); ALBUMIN 3.6 G/DL (3.4-5.0); ALBUMIN/GLOBULIN RATIO 0.9 (1.0-2.7); ALKALINE PHOSPHATASE 50 U/L (46-116); ASPARTATE AMINO TRANSFERASE 15 U/L (15-37); BILIRUBIN,TOTAL 0.3 MG/DL (0.2-1.0); CREATINE KINASE 134 U/L (26-308)
[2019-07-23] MEDS ORDERED: BENADRYL25 MG ORAL (14:15)
[2019-07-23] MEDS ORDERED: ANTI-ITCH28 G1 TP (14:15)
--- NOTE | 2019-07-23 14:21 | NUR ---
ED Nurse Note: PT LAYING PEACEFULLY IN BED IN NAD. AOX4. PRESCRIPTIONS AND DISCHARGE PAPERWORK EXPLAINED TO PT. PT VERBALIZES UNDERSTANDING AND ALL QUESTIONS ANSWERED. PRESCRIPTIONS SENT ELECTRONICALLY TO PT'S PHARMACY. DISCHARGE PAPERWORK GIVEN TO PT, IV AND ID WRISTBAND REMOVED. PT WALKED OUT OF ER WITH STEADY GAIT AND ALL BELONGINGS.
[2019-07-23 14:22] VITALS: BP 128/83
--- NOTE | 2019-07-23 14:41 | Diagnostic Imaging Report ---
EXAM: XR Chest, 1 View CLINICAL HISTORY: SOB TECHNIQUE: Frontal view of the chest. COMPARISON: Chest radiograph on 05 01 2019 FINDINGS: Hardware: None. Lungs pleura: Stable mild elevation of the right hemidiaphragm. No focal consolidation. No pleural effusion or pneumothorax. Heart mediastinum: Normal. No cardiomegaly. Soft tissues: Unremarkable. Bones: No acute fracture. Upper abdomen: Normal. IMPRESSION: No acute disease identified.
--- NOTE | 2019-07-23 21:14 | Emergency Room Report ---
History of Present Illness General Chief Complaint: Chest Pain Source: Patient Present Illness Allergies: Coded Allergies: EFAVIRENZ (Verified Allergy, Unknown, 03/11/14) HYDROCODONE (Verified Allergy, Unknown, 03/11/14) Patient History Reviewed Nursing Documentation: PMH: Agreed; PSxH: Agreed Nursing Documentation-PMH Hx Hypertension: No Hx Pacemaker: No Hx Asthma: No Hx COPD: No Hx Gastrointestinal Problems: Yes - RECTAL POLPYS Physical Exam Vital Signs Date Time Temp Pulse Resp B/P (MAP) Pulse Ox O2 Delivery O2 Flow Rate FiO2 07/23/19 12:39 98.1 85 17 113/77 (89) 96 07/23/19 12:53 Room Air Sp02 EP Interpretation: reviewed, normal General Appearance: normal inspection, well appearing, no apparent distress, alert, GCS 15, non-toxic Head: atraumatic ENT: normal ENT inspection, hearing grossly normal, normal voice Neck: normal inspection, full range of motion, supple, no bony tend Respiratory: normal inspection, lungs clear, normal breath sounds, no respiratory distress, no retraction, no wheezing Cardiovascular #1: regular rate, rhythm, no edema Gastrointestinal: normal inspection Genitourinary: no CVA tenderness Musculoskeletal: normal inspection, back normal, normal range of motion Neurologic: normal inspection, alert, oriented x3, responsive, crab fisherman III-XII nml as tested, speech normal Psychiatric: normal inspection, judgement/insight normal, mood/affect normal Skin: other - multiple papules to finger, no vesicles. Medical Decision Making Diagnostic Impression: Primary Impression: Nonspecific chest pain Additional Impression: Skin rash Labs Test 07/23/19 13:13 White Blood Count 8.0 K/UL (4.8-10.8) Red Blood Count 4.33 M/UL (4.70-6.10) Hemoglobin 14.1 G/DL (14.2-18.0) Hematocrit 41.9 % (42.0-52.0) Mean Corpuscular Volume 97 FL (80-99) Mean Corpuscular Hemoglobin 32.6 PG (27.0-31.0) Mean Corpuscular Hemoglobin Concent 33.6 G/DL (32.0-36.0) Red Cell Distribution Width 11.1 % (11.6-14.8) Platelet Count 322 K/UL (150-450) Mean Platelet Volume 6.0 FL (6.5-10.1) Neutrophils (%) (Auto) 50.1 % (45.0-75.0) Lymphocytes (%) (Auto) 37.5 % (20.0-45.0) Monocytes (%) (Auto) 8.8 % (1.0-10.0) Eosinophils (%) (Auto) 2.6 % (0.0-3.0) Basophils (%) (Auto) 1.1 % (0.0-2.0) Prothrombin Time 10.2 SEC (9.30-11.50) Prothromb Time International Ratio 1.0 (0.9-1.1) Activated Partial Thromboplast Time 28 SEC (23-33) Sodium Level 141 MMOL/L (136-145) Potassium Level 3.5 MMOL/L (3.5-5.1) Chloride Level 106 MMOL/L (98-107) Carbon Dioxide Level 27 MMOL/L (21-32) Anion Gap 8 mmol/L (5-15) Blood Urea Nitrogen 12 mg/dL (7-18) Creatinine 1.1 MG/DL (0.55-1.30) Estimat Glomerular Filtration Rate > 60 mL/min (>60) Glucose Level 112 MG/DL (74-106) Calcium Level 9.3 MG/DL (8.5-10.1) Total Bilirubin 0.3 MG/DL (0.2-1.0) Aspartate Amino Transf (AST/SGOT) 15 U/L (15-37) Alanine Aminotransferase (ALT/SGPT) 29 U/L (12-78) Alkaline Phosphatase 50 U/L (46-116) Total Creatine Kinase 134 U/L (26-308) Creatine Kinase MB 1.0 NG/ML (0.0-3.6) Creatine Kinase MB Relative Index 0.7 Troponin I 0.000 ng/mL (0.000-0.056) Pro-B-Type Natriuretic Peptide 7 pg/mL (0-125) Total Protein 7.7 G/DL (6.4-8.2) Albumin 3.6 G/DL (3.4-5.0) Globulin 4.1 g/dL Albumin/Globulin Ratio 0.9 (1.0-2.7) EKG Diagnostic Results Rate: normal Rhythm: NSR ST Segments: no acute changes Last Vital Signs Date Time Temp Pulse Resp B/P (MAP) Pulse Ox O2 Delivery O2 Flow Rate FiO2 07/23/19 14:22 98.3 71 19 128/83 100 Room Air Disposition: HOME, SELF-CARE Condition: Stable Scripts Diphenhydramine Hcl* (BENADRYL*) 25 Mg Capsule 25 MG ORAL Q6H PRN for Itching for 7 Days, #30 CAP Prov: Mata Aguilera MD 07/23/19 Hydrocortisone 2% Cream (ANTI-ITCH 2% CREAM) Y Cr 28 GM TP DAILY, #30 GM Prov: Mata Aguilera MD 07/23/19 Patient Instructions: Nonspecific Chest Pain Mata Aguilera MD Jul 23, 2019 21:13
== END 2019-07-23 14:30 | disposition home or self-care (01) ==
LOC: EMR 13:54
DX: R07.9 Chest pain, unspecified (principal); R21 Rash and other nonspecific skin eruption; Z88.8 Allergy status to other drugs, medicaments and biological substances; Z87.19 Personal history of other diseases of the digestive system
CPT/HCPCS: 36415; 71045; 80053; 82550; 82553; 83880; 84484; 85025; 85610; 85730; 93005; 99284

== ENCOUNTER 2019-10-28 14:01 | Emergency (ER) | payer MEDICARE, OTHER ==
[~2019-10-28] VITALS: Ht 172.7 cm; Wt 88.5 kg
[~2019-10-28 14:01] MED LIST changes: +ANTI-ITCH28 G1 TP
[2019-10-28 14:10] VITALS: BP 112/70
--- NOTE | 2019-10-28 14:14 | NUR ---
ED Nurse Note: Pt walked into ED w/ c/o cough for 1 month and wants to get an xray. Pt is alert and orientedx4, ambulatory. Pt cough on-reproductive. Pt set up on monitor. Pt lungs clear bilaterally to auscultation. Pt denies smoking, drinking. Pt has hx of HIV.
--- NOTE | 2019-10-28 14:19 | Emergency Room Report ---
History of Present Illness General Chief Complaint: Chest Pain Source: Patient Present Illness HPI Disclaimer: Please note that this report is being documented using [employer] technology. This can lead to erroneous entry secondary to incorrect interpretation by the dictating instrument. HPI: 54-year-old male history of HIV compliant with retroviral therapy, hypercholesterolemia presents for evaluation of cough and chest pain. Patient states he had an upper respiratory infection, possibly influenza, 1 month ago and was given antibiotics and Tamiflu. His symptoms improved but had a lingering nonproductive cough for the past month. Sent in by his doctor for chest x-ray and work-up of chest pain as he noted intermittent midsternal chest pain with worsening cough over the past 24 hours. Denies fever, chills. Notes a slightly sore throat. Denies nasal congestion, vomiting, diarrhea, skin rash. No exacerbating or relieving factors. PMH: HIV, hypercholesterolemia PSH: Abdominal surgery Allergies: Hydrocodone Social Hx: Denies drug, alcohol or tobacco use Allergies: Coded Allergies: EFAVIRENZ (Verified Allergy, Unknown, 03/11/14) HYDROCODONE (Verified Allergy, Unknown, 03/11/14) Nursing Documentation-PMH Past Medical History: No History, Except For Hx Hypertension: No Hx Pacemaker: No Hx Asthma: No Hx COPD: No Hx Gastrointestinal Problems: Yes - RECTAL POLPYS Review of Systems All Other Systems: negative except mentioned in HPI Physical Exam Vital Signs Date Time Temp Pulse Resp B/P (MAP) Pulse Ox O2 Delivery O2 Flow Rate FiO2 10/28/19 14:04 98.1 94 17 114/79 (91) 99 Room Air General: Awake and alert, no acute distress HEENT: NC/AT. EOMI. Neck: Supple, trachea midline Chest Wall: Mild reproducible tenderness over the sternum without deformity or crepitus Cardiovascular: RRR. S1 and S2 normal. No murmur appreciated Resp: Normal work of breathing. No cough, wheezing or crackles appreciated Abdomen: Abdomen is soft, nondistended. Nontender Skin: Intact. No abrasions, laceration or rash over the exposed skin MSK: Normal tone and bulk. Moving all extremities. No obvious deformity. Neuro: Awake and alert. Mentating appropriately. Medical Decision Making Diagnostic Impression: Primary Impression: Nonspecific chest pain Additional Impression: Cough ER Course 54-year-old male presents for evaluation of persistent cough and 24 hours of midsternal chest pain. Differential includes but is not limited to persistent bronchitis, pleurisy, costochondritis, pneumonia, URI, ACS, angina, GERD. Will rule out cardiac and pulmonary causes of chest pain persisting cough. No distress and physical exam is reassuring. Laboratory Tests Test 10/28/19 14:25 White Blood Count 6.4 K/UL (4.8-10.8) Red Blood Count 4.58 M/UL (4.70-6.10) L Hemoglobin 14.8 G/DL (14.2-18.0) Hematocrit 43.6 % (42.0-52.0) Mean Corpuscular Volume 95 FL (80-99) Mean Corpuscular Hemoglobin 32.3 PG (27.0-31.0) H Mean Corpuscular Hemoglobin Concent 33.9 G/DL (32.0-36.0) Red Cell Distribution Width 11.8 % (11.6-14.8) Platelet Count 392 K/UL (150-450) Mean Platelet Volume 5.9 FL (6.5-10.1) L Neutrophils (%) (Auto) 42.9 % (45.0-75.0) L Lymphocytes (%) (Auto) 41.0 % (20.0-45.0) Monocytes (%) (Auto) 11.6 % (1.0-10.0) H Eosinophils (%) (Auto) 3.4 % (0.0-3.0) H Basophils (%) (Auto) 1.2 % (0.0-2.0) Sodium Level 141 MMOL/L (136-145) Potassium Level 3.7 MMOL/L (3.5-5.1) Chloride Level 106 MMOL/L (98-107) Carbon Dioxide Level 26 MMOL/L (21-32) Anion Gap 9 mmol/L (5-15) Blood Urea Nitrogen 23 mg/dL (7-18) H Creatinine 1.3 MG/DL (0.55-1.30) Estimate Glomerular Filtration Rate 58.0 mL/min (>60) Glucose Level 112 MG/DL (74-106) H Calcium Level 9.1 MG/DL (8.5-10.1) Total Bilirubin 0.3 MG/DL (0.2-1.0) Aspartate Amino Transferase (AST) 18 U/L (15-37) Alanine Aminotransferase (ALT) 23 U/L (12-78) Alkaline Phosphatase 61 U/L (46-116) Troponin I 0.005 ng/mL (0.000-0.056) Total Protein 8.3 G/DL (6.4-8.2) H Albumin 3.8 G/DL (3.4-5.0) Globulin 4.5 g/dL Albumin/Globulin Ratio 0.8 (1.0-2.7) L EKG Diagnostic Results EKG Time: 14:20 Rate: normal Rhythm: NSR ST Segments: no acute changes Other Impression Sinus rhythm, normal axis, normal intervals, no ST segment changes Rhythm Strip Diag. Results Rhythm Strip Time: 14:20 EP Interpretation: yes Rate: 80s Rhythm: NSR, no PVC's, no ectopy Chest X-Ray Diagnostic Results Chest X-Ray Diagnostic Results : Chest X-Ray Ordered: Yes # of Views/Limited/Complete: 2 View Indication: Chest Pain EP Interpretation: Yes Interpretation: no consolidation, no effusion, no pneumothorax, no acute cardiopulmonary disease Impression: No acute disease Electronically Signed by: Electronically signed by Dr. Keanu Mullins Reevaluation Time: 15:17 Last Vital Signs Date Time Temp Pulse Resp B/P (MAP) Pulse Ox O2 Delivery O2 Flow Rate FiO2 10/28/19 14:04 98.1 94 17 114/79 (91) 99 Room Air Reevaluation Impression EKG, chest x-ray, labs are within normal limits. The patient will be discharged home to discuss with his PMD his chronic cough and musculoskeletal chest pain. Discussed reasons to return to the emergency department. He understands and agrees with this treatment plan. Disposition: HOME, SELF-CARE Condition: Stable Keanu Mullins MD Oct 28, 2019 14:19
[2019-10-28 14:46] LABS: BASOPHILS % (AUTO) 1.2 % (0.0-2.0); EOSINOPHILS % (AUTO) 3.4 % (0.0-3.0); HEMATOCRIT 43.6 % (42.0-52.0); HEMOGLOBIN 14.8 G/DL (14.2-18.0); MEAN CORPUSCULAR VOLUME 95 FL (80-99); MONOCYTES % (AUTO) 11.6 % (1.0-10.0); NEUTROPHILS % (AUTO) 42.9 % (45.0-75.0); PLATELET COUNT 392 K/UL (150-450); RED BLOOD COUNT 4.58 M/UL (4.70-6.10); RED CELL DISTRIBUTION WIDTH 11.8 % (11.6-14.8); WHITE BLOOD COUNT 6.4 K/UL (4.8-10.8)
[2019-10-28 14:56] LABS: ANION GAP 9 mmol/L (5-15); BLOOD UREA NITROGEN 23 mg/dL (7-18); CALCIUM 9.1 MG/DL (8.5-10.1); CARBON DIOXIDE 26 MMOL/L (21-32); CHLORIDE 106 MMOL/L (98-107); CREATININE 1.3 MG/DL (0.55-1.30); POTASSIUM 3.7 MMOL/L (3.5-5.1); SODIUM 141 MMOL/L (136-145)
[2019-10-28 15:01] LABS: ALANINE AMINOTRANSFERASE 23 U/L (12-78); ALBUMIN 3.8 G/DL (3.4-5.0); ALBUMIN/GLOBULIN RATIO 0.8 (1.0-2.7); ALKALINE PHOSPHATASE 61 U/L (46-116); ASPARTATE AMINO TRANSFERASE 18 U/L (15-37); BILIRUBIN,TOTAL 0.3 MG/DL (0.2-1.0)
--- NOTE | 2019-10-28 15:35 | Diagnostic Imaging Report ---
Indication: Cough Technique: 2 views of the chest Comparison: 07/23/2019 single view chest Findings: There is mild interstitial prominence and central bronchial wall thickening. No acute infiltrates, effusions, congestion. Heart size is upper limits of normal. Inspiration is suboptimal. Impression: Possible bronchitis changes. No acute process otherwise.
[2019-10-28 15:45] VITALS: BP 110/79
== END 2019-10-28 15:45 | disposition home or self-care (01) ==
LOC: EMR 14:29
DX: R07.9 Chest pain, unspecified (principal); R05 Cough; E78.00 Pure hypercholesterolemia, unspecified; Z21 Asymptomatic human immunodeficiency virus [HIV] infection status; Z88.5 Allergy status to narcotic agent; Z88.8 Allergy status to other drugs, medicaments and biological substances
CPT/HCPCS: 36415; 71046; 80053; 84484; 85025; 93005; 99284

== ENCOUNTER → 2020-09-04 | Outpatient (CLI) | payer MEDICARE, OTHER ==
--- NOTE | 2020-09-04 15:21 | Diagnostic Imaging Report ---
Indication: COUGH Technique: 2 views of the chest Comparison: 10/28/2019 Findings: Lungs and pleural spaces are clear. Heart size is normal. No significant change Impression: No acute process
== END | disposition home or self-care (01) ==
LOC: RAD 13:22
DX: Z01.812 Encounter for preprocedural laboratory examination (principal); R05 Cough
CPT/HCPCS: 71046